=== PATIENT | male | born 1980 | race Caucasian/White ===

== ENCOUNTER 2020-10-20 16:22 | Emergency (ER) | payer OTHER ==
[~2020-10-20] VITALS: Ht 162.6 cm; Wt 81.6 kg
--- NOTE | 2020-10-20 16:30 | NUR ---
40 y/o M BIBA with c/c chest pain for few hours. Patient reports pain to left pectoral region, reports 03/28. Per [facility], pt had 12 beers since 0800; states "I drank too much." Vomiting x 2 episodes prior to arrival. [facility] 12-lead Sinus tachycardic @ HR 130. BG 344. 20G R forearm established by EMS. PMH: DM Meds: Metformin NKA
[2020-10-20 16:37] VITALS: BP 144/88
--- NOTE | 2020-10-20 16:40 | NUR ---
40 Y/O M AGUEDA, PT PRESENTS TO ED WITH CHEST KERLINE FOR A FEW HOURS AFTER DRINKING 12 BEERS SINCE 0800 TODAY. PT HAS BEEN STATING THAT HE "DRANK TOO MUCH". PT BG 344 AND SINUS TACHY EN ROUTE. PT HAS 20 G R FOREARM ESTABLISHED BY EMS. SKIN IS PINK/WARM/DRY; AAOX2 WITH EVEN AND AMBULATES WITH ASSIST; LUNGS CLEAR BL; HR EVEN AND TACHY; PT DENIES ANY FEVER, SOB, OR COUGH AT THIS TIME; PATIENT STATES PAIN OF 10/10 AT THIS TIME; VSS; PATIENT POSITIONED FOR COMFORT; HOB ELEVATED; BEDRAILS UP X2; BED DOWN. ER MD MADE AWARE OF PT STATUS. PMH: DM MED: METFORMIN NKA
[2020-10-20] MEDS: NACL 0.9% 2,000 ML IV ONE (16:52)
[2020-10-20 16:57] LABS: BASOPHILS % (AUTO) 0.6 % (0.0-2.0); EOSINOPHILS % (AUTO) 0.6 % (0.0-4.0); HEMATOCRIT 46.5 % (36-52); HEMOGLOBIN 16.6 g/dL (12.0-18.0); LYMPHOCYTES # (AUTO) 1.9 K/uL (2.0-11.5); LYMPHOCYTES % (AUTO) 38.6 % (20.5-51.1); MEAN CORPUSCULAR HEMOGLOBIN 32 pg (27-31); MEAN CORPUSCULAR HGB CONC 36 g/dL (33-37); MEAN CORPUSCULAR VOLUME 88.6 fL (80-94); MONOCYTES # (AUTO) 0.3 K/uL (0.8-1.0); MONOCYTES % (AUTO) 6.3 % (1.7-9.3); NEUTROPHILS # (AUTO) 2.7 K/uL (1.8-7.7); NEUTROPHILS % (AUTO) 53.9 % (42.2-75.2); PLATELET COUNT (AUTO) 233 K/uL (140-450); RED BLOOD CELL COUNT(AUTO) 5.25 MIL/uL (4.20-6.10); RED CELL DISTRIBUTION WIDTH 13.2 % (11.6-13.7)
[2020-10-20 17:16] LABS: ANION GAP 19.9 (8-16); ASPARTATE AMINOTRANSFERASE 26 U/L (15-37); CARBON DIOXIDE 24.5 mmol/L (21-32); CHLORIDE 98 mmol/L (98-107); CREATININE 0.8 mg/dL (0.6-1.3); GFR ARICAN-AMERICAN 138 mL/min (>90); GLUCOSE 323 mg/dL (74-106); POTASSIUM 3.4 mmol/L (3.5-5.1); SODIUM SERUM 139 mmol/L (136-145); TOTAL BILIRUBIN 0.6 mg/dL (0.0-1.0); UREA NITROGEN, BLOOD 5 mg/dL (7-18)
[2020-10-20 17:21] LABS: ACETAMINOPHEN < 0.5 ug/ml (10-30); SALICYLATE < 2.8 mg/dL (2.8-20.0)
--- NOTE | 2020-10-20 19:15 | NUR ---
REPORT RECEIVED FROM BRITNEY ACEVEDO FOR CONTINUATION OF CARE.
--- NOTE | 2020-10-20 19:40 | NUR ---
PATIENT AO X4, RESPONDING APPROPRIATELY, ACTING APPROPRIATELY, ABLE TO FOLLOW COMMANDS. LAYING IN BED IN R LATERAL POSITION.
[2020-10-20] MEDS: LORazepam 2 MG/ML VIAL IVP ONE (19:45)
--- NOTE | 2020-10-20 20:13 | NUR ---
PATIENT C/O SHARP L SIDED CHEST PAIN LEVEL 8 OUT OF 10, ERMD MADE AWARE, NO ORDERS AT THIS TIME.
--- NOTE | 2020-10-20 20:36 | NUR ---
ROAD TEST ATTEMPTED ON PATIENT, PATIENT STATED HE WAS VERY DIZZY WHEN HE TRIED TO GET UP AND FELT LIKE HE WAS GOING TO FALL. HAD PATIENT LAY BACK DOWN AT THIS TIME. ERMD MADE AWARE.
[2020-10-21] MEDS: NACL 0.9% 2,000 ML IV ONE (00:44)
[2020-10-21] MEDS: PROCHLORPERAZINE 10 MG/2 ML VIAL IVP ONE (00:47)
[2020-10-21] MEDS: ONDANSETRON 4 MG/2 ML VIAL IVP ONE (00:48)
--- NOTE | 2020-10-21 01:12 | NUR ---
PATIENT LAYING IN BED, PANCHO OFFERED, PATIENT EATING NO NAUSEA AT THIS TIME.
--- NOTE | 2020-10-21 02:10 | NUR ---
ROAD TEST ATTEMPTED ON PATIENT, PATIENT STATED HE WAS VERY DIZZY WHEN HE GOT UP. GAIT WAS VERY UNSTEAY WHEN HE TRIED TO WALK AND STUMBLED. HAD PATIENT LAY BACK DOWN AT THIS TIME. ERMD MADE AWARE.
[2020-10-21] MEDS: NACL 0.9% 1,000 ML IV ONE (05:11)
--- NOTE | 2020-10-21 06:43 | NUR ---
PATIENT NEEDS TO VOID BUT STATES HE CAN'T WALK W/O FALLING. URINAL PROVIDED.
--- NOTE | 2020-10-21 07:09 | NUR ---
REPORT GIVEN TO BRITNEY GARCIA FOR TRANSFER OF CARE.
--- NOTE | 2020-10-21 07:12 | NUR ---
Received report from BRITNEY Lott. Transfer of care at this time.
--- NOTE | 2020-10-21 07:13 | NUR ---
Pt sleeping on right side, urinal at bedside emptied 950cc of dark yellow urine no sediment noted. Pt VSS, will continue to monitor.
--- NOTE | 2020-10-21 08:16 | NUR ---
ROAD TEST SUCCESSFUL, MADE AWARE, [facility] CALLED. #[id number]
[2020-10-21 08:23] VITALS: BP 123/76
--- NOTE | 2020-10-21 08:24 | NUR ---
Patient discharged with v/s stable. Written and verbal after care instructions given and explained. Patient verbalized understanding. Ambulatory with to car. All questions addressed prior to discharge. Advised to follow up with PMD.
== END 2020-10-21 08:27 | disposition home or self-care (01) ==
LOC: MED 16:22
DX: F10.129 Alcohol abuse with intoxication, unspecified (principal); R11.10 Vomiting, unspecified; E11.9 Type 2 diabetes mellitus without complications
CPT/HCPCS: 36415; 80053; 85025; 93005; 96361; 96374; 96375; 99284; G0480; G0482; J0780; J2060; J2405; J7030